=== PATIENT | male | born 1980 | race Caucasian/White ===

== ENCOUNTER 2024-08-28 12:47 | Emergency (ER) | payer BC, OTHER ==
[2024-08-28] MEDS ORDERED: Tetracaine 0.5% PF 4 ML BOT ONE (12:55)
[2024-08-28] MEDS ORDERED: Fluorescein Opthalmic Strip ONE ×2 (12:55→13:05)
== END 2024-08-28 14:09 | disposition home or self-care (01) ==
LOC: BURERS 12:47
DX: S05.01XA Injury of conjunctiva and corneal abrasion without foreign body, right eye, initial encounter (principal); I10 Essential (primary) hypertension; W22.8XXA Striking against or struck by other objects, initial encounter; Y93.H2 Activity, gardening and landscaping
CPT/HCPCS: 70480